=== PATIENT | female | born 1960 | race Caucasian/White ===

== ENCOUNTER → 2021-04-05 | Outpatient (CLI) | payer BC ==
--- NOTE | 2021-04-05 10:43 | RAD ---
EXAM: Abdomen sonogram. HISTORY: Pain. TECHNIQUE: Sonographic imaging of the abdomen was performed. COMPARISON: None. FINDINGS: The liver is normal in size. No focal hepatic lesion is seen. There is mild hepatic steatos is. There is cholelithiasis. There is no evidence of cholecystitis. The common bile duct is normal in caliber. The kidneys are normal in size. There is no hydronephrosis or suspicious renal lesion. The pancreas, aorta and inferior vena cava are obscured due to bowel gas. The spleen is normal in size, a nd also partially obscured due to bowel gas. IMPRESSION: 1. Cholelithiasis. 2. Mild hepatic steatosis. 3. Limited examination due to bowel gas. Electronically signed by: Serenity Cruz MD (04/05/2021 10:41 AM) [id number]
== END ==
LOC: US 10:18
PROVIDERS: ATTEND Family Medicine
DX: K76.0 Fatty (change of) liver, not elsewhere classified (principal); K80.20 Calculus of gallbladder without cholecystitis without obstruction; R10.11 Right upper quadrant pain
CPT/HCPCS: 76700

== ENCOUNTER → 2021-04-11 | Outpatient (CLI) | payer BC ==
[~2021-04-11] VITALS: Ht 175.3 cm; Wt 90.7 kg
[~2021-04-11] MED LIST: MORPHINE SULFATE 4 MG/ML INJ. IVP ONE
--- NOTE | 2021-04-11 14:52 | RAD ---
EXAM: Nuclear hepatobiliary scan. HISTORY: Cholelithiasis. TECHNIQUE: Following intravenous administration of 5.4 mCi Tc 99m Choletec, anterior images of the ab domen were obtained at five minute intervals through one hour. Subsequently, 8 ounces Boost drink was ingested and additional images to assess gallbladder ejection fraction were obtained. FINDINGS: There is prompt radiotracer uptake by the liver. No focal defect is seen. There is normal e xcretion into the biliary tree. The gallbladder is visualized within sixty minutes and there is free flow into the duodenum. The gallbladder ejection fraction is 62 percent. IMPRESSION: Normal radionuclide biliary scan. Electronically signed by: Serenity Cruz MD (04/11/2021 2:50 PM) [id number]
== END ==
LOC: NM 09:48
PROVIDERS: ATTEND Family Medicine
DX: K80.10 Calculus of gallbladder with chronic cholecystitis without obstruction (principal)
CPT/HCPCS: 78227; A9537